=== PATIENT | female | born 1965 | race Two or more races ===

== ENCOUNTER 2020-10-11 06:15 | Day surgery (SDC) | payer OTHER ==
[~2020-10-11 06:15] MED LIST: PEPCID PO
== END 2020-10-11 20:11 | disposition home or self-care (01) ==
LOC: CIR.AMB 06:15
PROVIDERS: ATTEND Obstetrics & Gynecology
DX: N84.0 Polyp of corpus uteri (principal); Z20.822 Contact with and (suspected) exposure to COVID-19

== ENCOUNTER 2022-07-12 22:21 | Emergency (ER) | payer OTHER ==
[~2022-07-12] VITALS: Ht 160 cm; Wt 64.4 kg
[2022-07-13] MEDS ORDERED: TUSNEL LIQUID178 ML PO (01:16)
[2022-07-13] MEDS ORDERED: PROAIR RESPICL90 MCG IH (01:16)
[2022-07-13] MEDS ORDERED: ZITHROMAX500 MG PO (01:16)
[2022-07-13] MEDS ORDERED: MEDROLPACK PO (01:16)
== END 2022-07-13 01:41 | disposition home or self-care (01) ==
LOC: ER 22:21
DX: U07.1 COVID-19 (principal)

== ENCOUNTER 2022-09-25 13:46 | Emergency (ER) | payer OTHER ==
[~2022-09-25] VITALS: Ht 160 cm; Wt 64.9 kg
[~2022-09-25 13:46] MED LIST changes: +MEDROLPACK PO; +PROAIR RESPICL90 MCG IH; +TUSNEL LIQUID178 ML PO; +ZITHROMAX500 MG PO
[2022-09-25] MEDS ORDERED: PEPCID AC20 MG PO (19:18)
[2022-09-25] MEDS ORDERED: CIPRO500 MG PO (19:18)
== END 2022-09-25 19:58 | disposition home or self-care (01) ==
LOC: ER 13:46
DX: K52.9 Noninfective gastroenteritis and colitis, unspecified (principal)

== ENCOUNTER 2023-05-19 09:41 | Emergency (ER) | payer OTHER ==
[~2023-05-19] VITALS: Ht 160 cm; Wt 64.4 kg
[~2023-05-19 09:41] MED LIST changes: +CIPRO500 MG PO; +PEPCID AC20 MG PO
[2023-05-19 11:19] LABS: HEMATOCRIT 42.7 % (36.0-45.00); HEMOGLOBIN 14.9 g/dL (12.0-15.00); MEAN CORPUSCULAR HEMOGLOBIN 31.4 pg (27.00-32.0); MEAN CORPUSCULAR HGB CONC 34.9 g/dl (32.0-36.0); PLATELET COUNT 285 K/uL (150-450); RED BLOOD COUNT 4.74 M/uL (4.00-6.00); RED CELL DISTRIBUTION WIDTH 13.2 % (11.5-14.5)
[2023-05-19] MEDS ORDERED: ZITHROMAX200 MG PO (12:14)
[2023-05-19] MEDS ORDERED: SINUS RINSE ST1 EACH NASAL (12:14)
[2023-05-19] MEDS ORDERED: FLONASE ALLERG9.9 ML NASAL (12:16)
== END 2023-05-19 12:29 | disposition home or self-care (01) ==
LOC: ER 09:42
PROVIDERS: General Practice
DX: R68.89 Other general symptoms and signs (principal); J32.9 Chronic sinusitis, unspecified; Z20.822 Contact with and (suspected) exposure to COVID-19

== ENCOUNTER 2024-04-07 05:00 | Day surgery (SDC) | payer OTHER ==
[2024-04-04 12:24] VITALS: BP 125/77
[2024-04-04 12:49] LABS: HEMATOCRIT 43.8 % (36.0-45.00); HEMOGLOBIN 14.9 g/dL (12.0-15.00); MEAN CELL VOLUME 91.8 fL (80.00-100.00); MEAN CORPUSCULAR HEMOGLOBIN 31.3 pg (27.00-32.0); MEAN CORPUSCULAR HGB CONC 34.1 g/dl (32.0-36.0); PLATELET COUNT 306 K/uL (150-450); RED BLOOD COUNT 4.77 M/uL (4.00-6.00)
[~2024-04-07] VITALS: Ht 160 cm; Wt 68.9 kg
[~2024-04-07 05:00] MED LIST changes: +FLONASE ALLERG9.9 ML NASAL; +SINUS RINSE ST1 EACH NASAL; +ZITHROMAX200 MG PO
[2024-04-07] MEDS ORDERED: CEFAZOLIN SODIUM 1,000 MG VIAL ONE (06:21)
[2024-04-07] MEDS ORDERED: CEFAZOLIN SODIUM 1,000 MG VIAL IV ONE (08:15)
[2024-04-07] MEDS ORDERED: POVIDONE-IODINE 118 ML BOTT TOP ONE (08:15)
[2024-04-07] MEDS ORDERED: DOXYCYCLINE HY100 M2 PO (09:54)
== END 2024-04-07 15:10 | disposition home or self-care (01) ==
LOC: CIR.AMB 05:00
PROVIDERS: ATTEND Obstetrics & Gynecology
DX: N84.0 Polyp of corpus uteri (principal); N95.0 Postmenopausal bleeding; R93.5 Abnormal findings on diagnostic imaging of other abdominal regions, including retroperitoneum; G43.909 Migraine, unspecified, not intractable, without status migrainosus